=== PATIENT | female | born 1980 | race African-American/Black ===

== ENCOUNTER 2020-03-25 16:44 | Emergency (ER) | payer OTHER, SELFPAY ==
[2020-03-25 16:50] VITALS: BP 145/109; PULSE 73; RESP 18; TEMP 36.8; O2SAT 100
--- NOTE | 2020-03-25 17:08 | ED.ABDPAIN ---
HPI - Abdominal Pain General Chief Complaint: Abdominal Pain Stated Complaint: ABD Pain, Vomiting Time Seen by Provider: 03/25/20 17:06 History of Present Illness HPI narrative: Burning epigastric pain for the past hour. Radiates into the chest. Associated with vomiting and headache. H/o cholecystectomy. Related Data Home Medications Medication Instructions Recorded Confirmed clonazepam 0.5 mg tablet 0.5 mg PO DAILY 11/23/19 fluoxetine 40 mg capsule 60 mg PO DAILY cap 11/23/19 Allergies Allergy/AdvReac Type Severity Reaction Status Date / Time No Known Allergies Allergy Verified 03/25/20 17:01 [facility] Past Medical History Medical History Anxiety Depression Thyroid nodule Surgical History Surgical History History of cholecystectomy Family History Family History Grandparent Cerebrovascular accident Family history of malignant neoplasm Leukemia Mother Brain tumor Breast cancer Social History Social History Smoking status: Former smoker Smoking end date: 09/21/16 Alcohol intake: current Exam Const: General: healthy appearing, no acute distress and alert Orientation/consciousness: patient oriented x3 HENMT: Head: normal to inspection Neck: Neck: normal visual inspection and no lymphadenopathy Chest: Chest palpation & inspection: no tenderness Resp: Effort & Inspection: normal respiratory effort Auscultation: clear to auscultation bilaterally, no rales, no rhonchi and no wheezes Cardio: Jugular venous distension: no JVD Rate: regular rate Rhythm: regular rhythm Heart sounds: no murmurs GI: Inspection: non-distended GI Palp: Yes Soft to palpation and Yes Tenderness to palpation present (GI) (epigastric and LUQ) Skin: General skin exam: normal color Neuro: General: patient oriented x3 and moves all extremities Speech: normal speech Extrem: General: no edema Psych: Appearance: well kempt Affect: normal affect Course Vital Signs Vital signs: Vital Signs Temperature 36.8 C 03/25/20 16:50 Pulse Rate 73 03/25/20 16:50 Respiratory Rate 18 03/25/20 16:50 Blood Pressure 145/109 H 03/25/20 16:50 Pulse Oximetry 100 03/25/20 16:50 Temperature 36.8 C 03/25/20 16:50 Pulse Rate 72 03/25/20 18:54 Respiratory Rate 18 03/25/20 18:54 Blood Pressure 145/99 H 03/25/20 18:54 Pulse Oximetry 100 03/25/20 18:54 MDM - Abdominal Pain MDM Narrative Medical decision making narrative: Presentation is most likely benign especially given h/o prior cholecystectomy. symptoms showed significant improvement with treatment. Lab Data Attestation: I reviewed the patient's lab results. Result diagrams: 03/25/20 17:42 03/25/20 17:42 Labs: Lab Results 03/25/20 03/25/20 03/25/20 Range/Units 17:42 17:42 17:42 WBC 10.1 H (4.5-10.0) K/mm3 RBC 4.55 (4.2-5.4) M/mm3 Hgb 13.1 (12.0-15.0) g/dL Hct 41.3 (37.0-47.0) % MCV 90.8 (80-100) fl MCH 28.8 (26-34) pg MCHC 31.7 L (32-36) g/dl RDW 12.3 (11.5-14.5) % Plt Count 273 (150-375) k/mm3 MPV 10.4 (7.4-10.4) fl Immature Gran % (Auto) 0.4 (0-0.5) % Neut % (Auto) 78.9 H (45.5-73.1) % Lymph % (Auto) 13.2 L (18.3-44.2) % [place] % (Auto) 5.7 (2.6-8.5) % Eos % (Auto) 1.4 (0-4.4) % Baso % (Auto) 0.4 (0.2-1.2) % Lymph # (Auto) 1.33 (0.9-3.2) K/mm3 [place] # (Auto) 0.6 (0.1-0.6) K/mm3 Eos # (Auto) 0.1 (0-0.3) K/mm3 Baso # (Auto) 0.0 (0.0-0.1) K/mm3 Abs Immat Gran (auto) 0.04 H (0.00-0.031) K/mm3 Absolute Neuts (auto) 8.0 H (1.3-6.7) K/mm3 Absolute Nucleated RBC 0.0 (0.0-0.012) K/mm3 Nucleated RBC % 0.0 (0.0-0.2) % Sodium 138 (137-145) mmol/L Potassium 3.7
[2020-03-25] MEDS: ONDANSETRON INJ 4 MG/2 ML VIAL IV PUSH (17:36)
[2020-03-25] MEDS: PANTOPRAZOLE SODIUM IV 40 MG VIAL IV PUSH (17:36)
--- NOTE | 2020-03-25 17:47 | PC.NURSE ---
This RN in room to do pts test, pt states she is fixed and doesn't need one
[2020-03-25 17:50] LABS: Basophils Percent Auto 0.4 % (0.2-1.2); Eosinophils Absolute Auto 0.1 K/mm3 (0-0.3); Eosinophils Percent Auto 1.4 % (0-4.4); Hematocrit 41.3 % (37.0-47.0); Hemoglobin 13.1 g/dL (12.0-15.0); Immature Granulocyte Absolute 0.04 K/mm3 (0.00-0.031); Immature Granulocyte Percent A 0.4 % (0-0.5); Lymphocytes Absolute Auto 1.33 K/mm3 (0.9-3.2); Lymphocytes Percent Auto 13.2 % (18.3-44.2); Mean Corpuscular HGB Conc 31.7 g/dl (32-36); Mean Corpuscular Hemoglobin 28.8 pg (26-34); Mean Corpuscular Volume 90.8 fl (80-100); Mean Platelet Volume 10.4 fl (7.4-10.4); Monocytes Absolute Auto 0.6 K/mm3 (0.1-0.6); Monocytes Percent Auto 5.7 % (2.6-8.5); Neutrophils Percent Auto 78.9 % (45.5-73.1); Platelet Count Result 273 k/mm3 (150-375); Red Blood Count 4.55 M/mm3 (4.2-5.4); Red Cell Distribution Width 12.3 % (11.5-14.5); White Blood Count 10.1 K/mm3 (4.5-10.0)
[2020-03-25 17:52] LABS: Add Urine Microscopic? NO; Appearance Urine Clear (Clear); Bilirubin Urine Negative (Negative); Blood Urine Negative (Negative); Color Urine Straw (Yellow); Glucose Urine UA Negative (Negative); Ketones Urine Negative (Negative); Leukocyte Esterase Ur Negative LEU/UL (Negative); Nitrate Urine Negative (Negative); Protein Urine Negative (Negative); Specific Grav Ur 1.015 (1.001-1.035); Urobilinogen Urine Negative mg/dL (<2.0)
[2020-03-25 18:01] LABS: Alanine Aminotransferase 21 U/L (4-35); Albumin Level 4.9 g/dL (3.5-5.1); Alkaline Phosphatase 107 U/L (38-126); Aspartate Amino Transferase 27 U/L (14-36); Bilirubin,Total 0.6 mg/dL (0.2-1.3); Blood Urea Nitrogen 11 mg/dL (7-17); Calcium 9.7 mg/dL (8.4-10.2); Carbon Dioxide 27 mmol/L (22-30); Chloride 104 mmol/L (98-107); Estimated CRCL calculation 108 ml/min; Estimated Glomerular Filt Rate > 60; Glucose 108 mg/dL (65-105); Lipase 366 U/L (23-300); Potassium 3.7 mmol/L (3.4-5.0); Sodium 138 mmol/L (137-145)
[2020-03-25] MEDS: METOCLOPRAMIDE HCL INJ 10 MG/2 ML VIAL IV PUSH (18:22)
[2020-03-25] MEDS: DICYCLOMINE HCL INJ 20 MG/2 ML VIAL IM (18:22)
[2020-03-25 18:54] VITALS: BP 145/99; PULSE 72; RESP 18; O2SAT 100
== END 2020-03-25 19:16 | disposition home or self-care (01) ==
PROVIDERS: Emergency Medicine; Emergency Provider Emergency Medicine; PCP Internal Medicine
DX: R10.13 Epigastric pain (principal); F41.9 Anxiety disorder, unspecified; F32.9 Major depressive disorder, single episode, unspecified; Z87.891 Personal history of nicotine dependence; E04.1 Nontoxic single thyroid nodule
CPT/HCPCS: 36415; 80053; 81003; 83690; 85025; 96372; 96374; 96375; 99284; C9113; J0500; J2060; J2405; J2765

== ENCOUNTER 2020-09-29 19:05 | Emergency (ER) | payer OTHER, SELFPAY ==
--- NOTE | ~2020-09-29 | XR_ITS ---
EXAMINATION: XR cervical spine 4-5V DATE: 09/29/2020 20:35 INDICATION: Neck pain. Left ear pain. TECHNIQUE: 4 views of the cervical spine were obtained. COMPARISON: None. FINDINGS: There is 4 degrees levocurvature of cervical spine. There is kyphosis of cervical spine. Ve rtebral body heights and intervertebral disc heights are normal. The facet joints are unremarkable. N o central canal stenosis or prevertebral soft tissue swelling. IMPRESSION: 1. Cervical kyphosis and levocurvature. Reviewed, dictated and finalized at location A. ADMIN
[2020-09-29 19:07] VITALS: BP 142/86; PULSE 76; RESP 18; TEMP 35.9; O2SAT 100
--- NOTE | 2020-09-29 19:56 | ECG_ITS ---
Measurements Intervals [place] Rate: 69 P: 34 PA: 144 QRS: 16 QRSD: 76 T: 39 QT: 363 QTc: 391 Interpretive Statements SINUS RHYTHM DELAYED PRECORDIAL R/S TRANSITION BASELINE ARTIFACT- I, II, V3 BORDERLINE ECG Electronically Signed On 09-29-2020 20:32:35 [employer] OPERATOR by Jose Armando Bangura D.O.
--- NOTE | 2020-09-29 20:07 | PC.NURSE ---
Patient in Xray at this time.
--- NOTE | 2020-09-29 20:21 | ED.GENADULT ---
HPI - General Adult General Chief complaint: Unspecified Stated complaint: Head Pain Left Side Time Seen by Provider: 09/29/20 19:43 Source: RN notes reviewed History of Present Illness HPI narrative: Patient presents to emergency department from home for left-sided neck pain. Patient states symptoms began approximately 3 weeks ago. Pain goes from the patient's left lateral head and ear down into the left lateral shoulder and down into the back into the anterior chest. She states is associated with pain with moving of the neck as well as some intermittent tingling in her left arm she states she does have a sore throat with this. Patient denies any fevers chest pain shortness of breath coughing abdominal pain nausea vomiting or any other symptoms. She denies any unilateral weakness. Patient states she has been taking Tylenol ibuprofen at home with minimal relief. Patient also notes that she does currently see a psychiatrist and they have been weaning her medication. When asked about suicidal ideation she states that she does have some thoughts of harming herself most recently talked about hanging herself 3 days ago but states that she had an active safety plan following this. She denies any current thoughts of suicidal ideation today. Morphine she states that she has been weaned off of her Prozac because she was getting extrapyramidal symptoms Related Data Home Medications Medication Instructions Recorded Confirmed fluoxetine 40 mg capsule 60 mg PO DAILY cap 11/23/19 Allergies Allergy/AdvReac Type Severity Reaction Status Date / Time No Known Allergies Allergy Verified 09/29/20 19:21 Review of Systems Review of Systems: Narrative: Gen.: Denies fevers or chills Eyes: Denies eye pain or visual change ENT: Denies congestion Respiratory: Denies shortness of breath or cough CV: Denies chest pain or palpitations GI: Denies abdominal pain nausea, emesis or diarrhea denies burning, urgency, frequency or hematuria Musculoskeletal: See HPI Neuro: Denies numbness, tingling, weakness or focal weakness Skin: Denies rash Except as documented, all other systems reviewed and negative [facility] Past Medical History Medical History (Updated 09/29/20 @ 23:57 by Tab Archer DO) Anxiety Depression Thyroid nodule Surgical History Surgical History History of cholecystectomy Family History Family History Grandparent Cerebrovascular accident Family history of malignant neoplasm Leukemia Mother Brain tumor Breast cancer Social History Social History Smoking status: Former smoker Smoking end date: 09/21/16 Alcohol intake: current Exam Narrative: Exam Narrative: APPEARANCE: No acute distress, nontoxic, resting in bed EYES: EOMI HEENT: Normocephalic, atraumatic, TMs clear bilaterally nares patent oral mucosa moist mild erythema with no exudate posterior pharynx tonsils 2+ uvula midline tolerating own secretions Neck: Supple no midline tenderness palpation tender palpation over the left trapezius muscle diffusely with muscle spasm palpated, pain with rotation of the neck bilaterally greater than 45 degrees RESPIRATORY: No respiratory distress Clear to auscultation bilaterally with no rhonchi wheezing or rales. CARDIOVASCULAR: Regular rate and rhythm without murmurs rubs or gallops. ABDOMINAL: Soft, nontender, nondistended, no rebound or guarding MUSCULOSKELETAl: Moves all extremities. No clubbing, cyanosis or edema. Bilateral radial pulse 2+ NEURO: Awake and alert x 4. Following commands, speech normal, no focal deficits muscle strength 5 out of 5 bilateral upper and lower extremities SKIN:: Warm, dry. No rashes lesions or abrasions PSYCHIATRIC: Normal affect/mood, Course Course Emergency Course: Patient states that neck pain is improved with mor
[2020-09-29] MEDS: KETOROLAC 30 MG/ML VIAL (*BKC) IV PUSH (20:33)
[2020-09-29 20:41] LABS: Basophils Percent Auto 0.6 % (0.2-1.2); Eosinophils Absolute Auto 0.3 K/mm3 (0-0.3); Eosinophils Percent Auto 4.7 % (0-4.4); Hematocrit 41.8 % (37.0-47.0); Hemoglobin 13.1 g/dL (12.0-15.0); Immature Granulocyte Absolute 0.02 K/mm3 (0.00-0.031); Immature Granulocyte Percent A 0.3 % (0-0.5); Lymphocytes Absolute Auto 2.23 K/mm3 (0.9-3.2); Lymphocytes Percent Auto 35.1 % (18.3-44.2); Mean Corpuscular HGB Conc 31.3 g/dl (32-36); Mean Corpuscular Volume 92.5 fl (80-100); Mean Platelet Volume 10.4 fl (7.4-10.4); Monocytes Absolute Auto 0.5 K/mm3 (0.1-0.6); Neutrophils Absolute Auto 3.3 K/mm3 (1.3-6.7); Neutrophils Percent Auto 51.3 % (45.5-73.1); Platelet Count Result 246 k/mm3 (150-375); Red Blood Count 4.52 M/mm3 (4.2-5.4); Red Cell Distribution Width 11.9 % (11.5-14.5); White Blood Count 6.4 K/mm3 (4.5-10.0)
[2020-09-29 20:58] LABS: Ethanol < 10 mg/dL (<10)
[2020-09-29 20:59] LABS: Alanine Aminotransferase 22 U/L (4-35); Albumin Level 4.5 g/dL (3.5-5.1); Alkaline Phosphatase 73 U/L (38-126); Anion Gap 8 mmol/L (8-16); Aspartate Amino Transferase 24 U/L (14-36); Bilirubin,Total 0.5 mg/dL (0.2-1.3); Blood Urea Nitrogen 16 mg/dL (7-17); Calcium 9.1 mg/dL (8.4-10.2); Carbon Dioxide 28 mmol/L (22-30); Chloride 103 mmol/L (98-107); Estimated CRCL calculation 111 ml/min; Estimated Glomerular Filt Rate > 60; Glucose 86 mg/dL (65-105); Sodium 139 mmol/L (137-145)
[2020-09-29 21:00] LABS: Add Urine Microscopic? NO; Appearance Urine Clear (Clear); Bilirubin Urine Negative (Negative); Blood Urine Negative (Negative); Color Urine Straw (Yellow); Glucose Urine UA Negative (Negative); Ketones Urine Negative (Negative); Leukocyte Esterase Ur Negative LEU/UL (Negative); Nitrate Urine Negative (Negative); Protein Urine Negative (Negative); Urobilinogen Urine Negative mg/dL (<2.0)
[2020-09-29 21:12] LABS: Amphetamine Screen Urine Negative (Negative); Barbiturate Screen Urine Negative (Negative); Benzodiazepines Screen Urine Negative (Negative); Cannabinoid Screen Urine Negative (Negative); Cocaine Screen Urine Negative (Negative); Methadone Screen Urine Negative (Negative); Opiate Screen Urine Negative (Negative); Phencyclidine Screen Urine Negative (Negative)
[2020-09-29] MEDS: MORPHINE SULFATE (*CRX) 2 MG/ML INJ IV PUSH ×2 (22:00→23:57)
[2020-09-29 23:43] VITALS: BP 142/76; PULSE 76; RESP 18; O2SAT 98
== END 2020-09-30 00:09 | disposition home or self-care (01) ==
PROVIDERS: Emergency Provider Emergency Medicine; PCP Internal Medicine
DX: M62.838 Other muscle spasm (principal); F41.9 Anxiety disorder, unspecified; F32.9 Major depressive disorder, single episode, unspecified; Z87.891 Personal history of nicotine dependence
CPT/HCPCS: 36415; 72050; 80053; 80307; 81003; 81025; 84443; 85025; 87081; 87880; 93005; 96374; 96375; 96376; 99284; J1885; J2270

== ENCOUNTER 2021-03-11 13:41 | Outpatient (CLI) | payer OTHER, SELFPAY ==
--- NOTE | ~2021-03-11 | MR_ITS ---
EXAMINATION: MR brain/brain stem wo con DATE: 03/11/2021 14:46 INDICATION: Other visual disturbances. Memory loss. TECHNIQUE: Magnetic resonance imaging (MRI) of the brain and brainstem was performed without intraven ous contrast. Sequences included sagittal and axial T1-weighted FSE, axial diffusion-weighted FS EPI, axial T2*-weighted GRE, axial T2-weighted FLAIR Propeller, and axial T2-weighted Propeller. Apparent diffusion coefficient (ADC) maps were created. COMPARISON: None. FINDINGS: There is no intracranial hemorrhage, acute infarction, or abnormal intracranial mass lesion . The ventricles are normal in size. There is mild mucosal thickening in the paranasal sinuses. The o rbits are normal. The mastoid air cells are normal. IMPRESSION: 1. Normal brain. Reviewed, dictated and finalized at location A. IMPRESSION: 1. Normal brain.
== END 2021-03-11 13:42 | disposition home or self-care (01) ==
LOC: ANHIMG 13:42
PROVIDERS: PCP Internal Medicine; Visit Provider Nurse Practitioner
DX: H53.8 Other visual disturbances (principal); R20.2 Paresthesia of skin; R41.3 Other amnesia
CPT/HCPCS: 70551

== ENCOUNTER 2021-03-13 09:42 | Outpatient (CLI) | payer OTHER, SELFPAY ==
--- NOTE | ~2021-03-13 | MM_ITS ---
EXAMINATION: MM screening zeus BI w phyllis HISTORY: Screening mammogram TECHNIQUE: Craniocaudal and mediolateral oblique 3-D tomosynthesis images were obtained and synthetic 2-D images were generated. CAD analysis was submitted and interpreted. COMPARISON: 05/31/2019 bilateral digital screening mammogram BREAST PARENCHYMAL COMPOSITION: There are scattered areas of fibroglandular density. FINDINGS: Focal asymmetries and nodular densities are noted in both breasts. Bilateral diagnostic zeus mography and breast ultrasound examination are recommended. IMPRESSION: 1. No mammographic evidence of malignancy. 2. Recommend routine screening mammography in one year. BI-RADS Category 0: Incomplete: Needs additional imaging evaluation. Reviewed, dictated and finalized at location A.
== END 2021-03-13 09:43 | disposition home or self-care (01) ==
LOC: ANHIMG 09:45
PROVIDERS: PCP Internal Medicine; Visit Provider Obstetrics & Gynecology
DX: Z12.31 Encounter for screening mammogram for malignant neoplasm of breast (principal); R92.8 Other abnormal and inconclusive findings on diagnostic imaging of breast
CPT/HCPCS: 77063; 77067

== ENCOUNTER 2021-04-30 11:53 | Outpatient (CLI) | payer OTHER, SELFPAY ==
--- NOTE | ~2021-04-30 | MMUS_ITS ---
EXAMINATION: MM diagnostic zeus BI w phyllis, US breast BI complete HISTORY: Follow-up breast asymmetries TECHNIQUE: Additional 3-D tomosynthesis images of the breasts were performed and synthetic 2-D images were generated. CAD analysis was submitted and interpreted. High resolution complete bilateral breas t ultrasound was performed. COMPARISON: Comparison to multiple prior studies sequentially, with oldest reviewed study dated 05/31/2019. BREAST PARENCHYMAL COMPOSITION: Breast composed of scattered areas of fibroglandular density. FINDINGS: MAMMOGRAPHIC FINDINGS: There are no suspicious masses, calcifications or architectural distortion in either breast to sugges t malignancy. ULTRASOUND: Complete bilateral breast ultrasound: There are small cysts in the right breast, largest measuring 4 mm. No sonographic evidence for malignancy in either breast. IMPRESSION: 1. No evidence for malignancy in either breast. 2. Routine yearly screening mammogram and regular clinical breast examination are recommended. BI-RADS Category 2: Benign finding(s). Reviewed, dictated and finalized at location A. IMPRESSION: 1. No evidence for malignancy in either breast. 2. Routine yearly screening mammogram and regular clinical breast examination a re recommended. BI-RADS Category 2: Benign finding(s).
== END 2021-04-30 11:54 | disposition home or self-care (01) ==
LOC: ANHIMG 11:56
PROVIDERS: PCP Internal Medicine; Visit Provider Obstetrics & Gynecology
DX: R92.8 Other abnormal and inconclusive findings on diagnostic imaging of breast (principal)
CPT/HCPCS: 76641; 77062; 77066; G0279

== ENCOUNTER 2021-07-25 21:02 | Emergency (ER) | payer OTHER, SELFPAY ==
--- NOTE | ~2021-07-25 | CT_ITS ---
EXAMINATION: CT abdomen pelvis w con DATE: 07/25/2021 23:18 INDICATION: Bilateral flank pain TECHNIQUE: Computed tomography (CT) of the abdomen and pelvis was performed without intravenous contr ast. Automated exposure control and iterative reconstruction technique were employed. Exam dose: 900 .93 mGy-cm total exam DLP. COMPARISON: None. FINDINGS: The lung bases are clear of infiltrate or consolidation. Normal heart size. No pericardial or pleural effusion. There is postoperative change from cholecystectomy. Mild intrahepatic bile duct dilatation is likely secondary to that surgery. Common bile duct is of normal caliber. There are scattered up to 7 mm hepatic cysts. Normal splenic size. No pancreatic mass lesion, calcifi cation or ductal dilatation. Normal morphology of the adrenal glands. No renal mass lesion or urinary tract calculus or hydroureteronephrosis. Renal outlines are smooth. T here is no evidence of chronic pyelonephritis or suggestion of acute pyelonephritis-there is homogene ous enhancement of the kidneys and no perinephric fat stranding or thickening of the pararenal fascia . Normal caliber of the abdominal aorta. No intraperitoneal or retroperitoneal or pelvic mass lesion or adenopathy or ascites. Peripherally enhancing 1.3 cm involuting right ovarian cyst. Involuting peripherally enhancing 1.5 cm left ovarian cyst. Mild uterine enlargement. The urinary bladder is largely evacuated. Normal caliber of the abdominal aorta. No intraperitoneal or retroperitoneal or pelvic mass lesion or adenopathy or ascites. Normal appendix. No bowel obstruction, bowel wall thickening, pneumatosis or intraperitoneal free air . Small fat-containing umbilical hernia. Included skeletal structures are unremarkable. IMPRESSION: No CT evidence of pyelonephritis, acute or chronic Status post cholecystectomy Scattered 7 mm or smaller hepatic cysts Bilateral involuting 1.4 cm or smaller ovarian cysts Reviewed, dictated and finalized at Location A. Reviewed, dictated and finalized at location A.
[2021-07-25 21:06] VITALS: BP 166/93; PULSE 105; RESP 14; TEMP 36.6; O2SAT 100
[2021-07-25 21:11] VITALS: BP 140/84; PULSE 104; RESP 20; TEMP 36.8; O2SAT 100
[2021-07-25] MEDS: KETOROLAC 15 MG/ML VIAL (*BKC) IV PUSH (21:33)
[2021-07-25] MEDS: SODIUM CHLORIDE 0.9% IV 1,000 ML 999 ML IV CONT (21:34)
[2021-07-25 21:45] LABS: Basophils Percent Auto 0.5 % (0.2-1.2); Eosinophils Absolute Auto 0.2 K/mm3 (0-0.3); Eosinophils Percent Auto 3.2 % (0-4.4); Hematocrit 40.7 % (37.0-47.0); Hemoglobin 13.2 g/dL (12.0-15.0); Immature Granulocyte Absolute 0.01 K/mm3 (0.00-0.031); Immature Granulocyte Percent A 0.2 % (0-0.5); Lymphocytes Absolute Auto 1.74 K/mm3 (0.9-3.2); Lymphocytes Percent Auto 30.7 % (18.3-44.2); Mean Corpuscular HGB Conc 32.4 g/dl (32-36); Mean Corpuscular Hemoglobin 29.5 pg (26-34); Mean Corpuscular Volume 90.8 fl (80-100); Mean Platelet Volume 10.4 fl (7.4-10.4); Monocytes Absolute Auto 0.4 K/mm3 (0.1-0.6); Monocytes Percent Auto 6.5 % (2.6-8.5); Neutrophils Absolute Auto 3.3 K/mm3 (1.3-6.7); Neutrophils Percent Auto 58.9 % (45.5-73.1); Platelet Count Result 228 k/mm3 (150-375); Red Blood Count 4.48 M/mm3 (4.2-5.4); Red Cell Distribution Width 11.8 % (11.5-14.5); White Blood Count 5.7 K/mm3 (4.5-10.0)
[2021-07-25 22:00] LABS: Alanine Aminotransferase 16 U/L (4-35); Albumin Level 4.9 g/dL (3.5-5.1); Alkaline Phosphatase 73 U/L (38-126); Anion Gap 10 mmol/L (8-16); Aspartate Amino Transferase 21 U/L (14-36); Bilirubin,Total 0.6 mg/dL (0.2-1.3); Blood Urea Nitrogen 12 mg/dL (7-17); Calcium 9.9 mg/dL (8.4-10.2); Carbon Dioxide 26 mmol/L (22-30); Chloride 106 mmol/L (98-107); Estimated CRCL calculation 81 ml/min; Estimated Glomerular Filt Rate > 60; Glucose 102 mg/dL (65-110); Potassium 3.7 mmol/L (3.4-5.0); Sodium 142 mmol/L (137-145)
[2021-07-25 22:01] LABS: Lactic Acid Reflex 1.1 mmol/L (0.7-2.1)
--- NOTE | 2021-07-25 22:15 | ED.ABDPAIN ---
HPI - Abdominal Pain General Chief Complaint: Urogenital-Female Stated Complaint: uti symptoms Time Seen by Provider: 07/25/21 21:09 Source: patient History of Present Illness HPI narrative: Patient presents with concern for UTI. She reports she has had pain with urination and increased urinary frequency for the past 2 weeks. Saw her primary care doctor yesterday was diagnosed with UTI was started on Macrobid. Reports her symptoms persisted today talk to her primary care doctor is referred to the ER for evaluation. She does not feel her symptoms are worse they are just not improving. Reports her pain is primarily in her lower abdomen but she is now experiencing back pain as well. She denies any fevers, cough, congestion, nausea, vomiting. Related Data Allergies Allergy/AdvReac Type Severity Reaction Status Date / Time No Known Allergies Allergy Verified 01/03/21 14:55 Review of Systems Review of Systems: CONSTITUTIONAL: Denies fever, chills, or sweats. EYES: Denies visual changes, redness, or discharge. ENT: Denies rhinorrhea, congestion, sore throat, or otalgia. CARDIOVASCULAR: Denies chest pain, palpitations, or edema. RESPIRATORY: Denies cough or dyspnea. GASTROINTESTINAL: Denies abdominal pain, nausea, vomiting, or diarrhea. GENITOURINARY: Patient reports pain with urination, increased urinary frequency SKIN: Denies rash or itching. MUSCULOSKELETAL: Denies back pain, joint pain, or myalgia. NEUROLOGIC: Denies headache, numbness, dizziness, or weakness. PSYCHIATRIC: Denies anxiety or depression. All systems reviewed & are unremarkable except as noted in HPI and below PMFSH Past Medical History Medical History (Updated 07/26/21 @ 00:12 by Du Kincaid MD) Anxiety Depression Thyroid nodule Surgical History Surgical History History of cholecystectomy Family History Family History Grandparent Cerebrovascular accident Family history of malignant neoplasm Leukemia Mother Brain tumor Breast cancer Social History Social History Smoking status: Former smoker Smoking end date: 09/21/16 Alcohol intake: current Alcohol use details: socially Exam Narrative: GENERAL: Well-appearing, well-nourished, and in no acute distress. HEAD: Normocephalic, atraumatic. EYES: PERRLA and EOMI. ENT: Nares clear, no rhinorrhea or epistaxis. Mucous membranes moist. ABDOMEN: Mild tenderness in the suprapubic area soft, nondistended, normal active bowel sounds. BACK: Diffuse back pain with CVA tenderness bilaterally EXTREMITIES: Normal range of motion. No edema. SKIN: Warm, dry, no rash. NEURO: No focal deficits. Alert and oriented x3. PSYCH: Normal mood and affect. Course Reevaluation(s) Reevaluation #1: Patient reports feeling much improved. Results and plan reviewed with patient. Patient comfortable with outpatient plan. Date: 07/26/21 Time: 00:08 Vital Signs Vital signs: Vital Signs Temperature 36.6 C 07/25/21 21:06 Pulse Rate 105 H 07/25/21 21:06 Respiratory Rate 14 07/25/21 21:06 Blood Pressure 166/93 H 07/25/21 21:06 Pulse Oximetry 100 07/25/21 21:06 Temperature 36.8 C 07/25/21 21:11 Pulse Rate 74 07/25/21 23:49 Respiratory Rate 18 07/25/21 23:49 Blood Pressure 121/56 L 07/25/21 23:49 Pulse Oximetry 99 07/25/21 23:49 MDM - Abdominal Pain MDM Narrative Medical decision making narrative: H&P as above, vss, pt looks clinically well, exam with bilateral CVA tenderness, labs labs clinically unremarkable interpretation of UA likely limited as patient is on oral antibiotics, img without acute process, additional labs/img considered, symptomatic relief available as needed, on reevaluation pt continues to looks clinically well. Suspect urinary tract infection possibly early Lance however imaging was negative,
[2021-07-25] MEDS: MORPHINE SULFATE (*CRX) 4 MG/ML INJ IV PUSH (22:46)
[2021-07-25] MEDS: ONDANSETRON INJ 4 MG/2 ML VIAL IV PUSH (23:28)
[2021-07-25 23:44] LABS: Add Urine Microscopic? YES; Appearance Urine Cloudy (Clear); Bacteria Urine Trace /hpf; Bilirubin Urine Negative (Negative); Blood Urine Negative (Negative); Budding Yeast Urine Present /hpf; Color Urine Yellow (Yellow); Glucose Urine UA Negative (Negative); Ketones Urine Negative (Negative); Leukocyte Esterase Ur Negative LEU/UL (Negative); Mucus Urine Rare /lpf; Nitrate Urine Negative (Negative); Protein Urine Negative (Negative); RBC Urine 0-2 /hpf (0-2); Specific Grav Ur 1.025 (1.001-1.035); Squamous Epithelial Cell Urine Many /hpf (Few)
[2021-07-25 23:49] VITALS: BP 121/56; PULSE 74; RESP 18; O2SAT 99
== END 2021-07-26 00:32 | disposition home or self-care (01) ==
PROVIDERS: Emergency Provider Emergency Medicine; PCP Internal Medicine
DX: N39.0 Urinary tract infection, site not specified (principal); Z87.891 Personal history of nicotine dependence; N83.202 Unspecified ovarian cyst, left side; N83.201 Unspecified ovarian cyst, right side; K76.89 Other specified diseases of liver
CPT/HCPCS: 36415; 74177; 80053; 81001; 81025; 83605; 85025; 96365; 96367; 96375; 99284; J0131; J0696; J1885; J2270; J2405; J7030; Q9967

== ENCOUNTER 2022-05-15 09:29 | Outpatient (CLI) | payer OTHER, SELFPAY ==
[2022-05-15 18:38] LABS: Basophils Percent Auto 1.1 % (0.2-1.2); Eosinophils Absolute Auto 0.1 K/mm3 (0-0.3); Eosinophils Percent Auto 3.6 % (0-4.4); Hematocrit 38.4 % (37.0-47.0); Hemoglobin 12.2 g/dL (12.0-15.0); Lymphocytes Absolute Auto 1.22 K/mm3 (0.9-3.2); Lymphocytes Percent Auto 33.8 % (18.3-44.2); Mean Corpuscular HGB Conc 31.8 g/dl (32-36); Mean Corpuscular Hemoglobin 28.6 pg (26-34); Mean Corpuscular Volume 89.9 fl (80-100); Mean Platelet Volume 11.2 fl (7.4-10.4); Monocytes Absolute Auto 0.3 K/mm3 (0.1-0.6); Neutrophils Absolute Auto 1.9 K/mm3 (1.3-6.7); Neutrophils Percent Auto 53.5 % (45.5-73.1); Platelet Count Result 220 k/mm3 (150-375); Red Blood Count 4.27 M/mm3 (4.2-5.4); Red Cell Distribution Width 11.9 % (11.5-14.5); White Blood Count 3.6 K/mm3 (4.5-10.0)
[2022-05-15 18:46] LABS: Alanine Aminotransferase 15 U/L (6-35); Albumin Level 4.7 g/dL (3.5-5.1); Alkaline Phosphatase 71 U/L (38-126); Anion Gap 10 mmol/L (8-16); Aspartate Amino Transferase 22 U/L (14-36); Bilirubin,Total 0.7 mg/dL (0.2-1.3); Blood Urea Nitrogen 16 mg/dL (7-17); Calcium 9.3 mg/dL (8.4-10.2); Carbon Dioxide 23 mmol/L (22-30); Chloride 104 mmol/L (98-107); Cholesterol 132 mg/dL (0-200); Estimated Glomerular Filt Rate > 60; Glucose 105 mg/dL (65-110); HDL Direct 45 mg/dL; Potassium 3.7 mmol/L (3.4-5.0); Sodium 137 mmol/L (137-145); Triglycerides 64 mg/dL (<150)
[2022-05-15 18:59] LABS: LDL Cholesterol Direct 59 mg/dL
[2022-05-15 19:01] LABS: Erythrocyte Sedimentation Rate 10 mm/hr (0-20)
[2022-05-15 19:16] LABS: Thyroid Stimulating Hormone 0.681 uIU/mL (0.465-4.680)
[2022-05-15 19:51] LABS: Folic Acid 14.7 ng/mL (2.76->20)
== END 2022-05-15 09:30 | disposition home or self-care (01) ==
LOC: ANHGOSHLAB 09:31
PROVIDERS: PCP Internal Medicine; Visit Provider Nurse Practitioner
DX: Z13.220 Encounter for screening for lipoid disorders (principal); R53.83 Other fatigue; R51.9 Headache, unspecified; Z13.29 Encounter for screening for other suspected endocrine disorder
CPT/HCPCS: 36415; 80053; 80061; 82607; 82746; 84443; 85025; 85652

== ENCOUNTER 2022-06-23 11:58 | Outpatient (CLI) | payer OTHER, SELFPAY ==
[2022-06-23 20:07] LABS: Rheumatoid Factor < 8.6 IU/ML (<12)
[2022-06-23 20:40] LABS: Hepatitis C Virus Antibody Negative (Negative)
[2022-06-23 20:48] LABS: HIV 1/2 Ab P24 Ag Result Negative (Negative)
[2022-06-23 21:26] LABS: Basophils Absolute Auto 0.1 K/mm3 (0.0-0.1); Eosinophils Absolute Auto 0.1 K/mm3 (0-0.3); Eosinophils Percent Auto 2.8 % (0-4.4); Hematocrit 41.9 % (37.0-47.0); Hemoglobin 13.1 g/dL (12.0-15.0); Immature Granulocyte Absolute 0.01 K/mm3 (0.00-0.031); Immature Granulocyte Percent A 0.2 % (0-0.5); Lymphocytes Absolute Auto 1.64 K/mm3 (0.9-3.2); Lymphocytes Percent Auto 32.3 % (18.3-44.2); Mean Corpuscular HGB Conc 31.3 g/dl (32-36); Mean Corpuscular Hemoglobin 28.2 pg (26-34); Mean Corpuscular Volume 90.3 fl (80-100); Mean Platelet Volume 12.5 fl (7.4-10.4); Monocytes Absolute Auto 0.3 K/mm3 (0.1-0.6); Monocytes Percent Auto 5.1 % (2.6-8.5); Neutrophils Percent Auto 58.6 % (45.5-73.1); Platelet Count Result 204 k/mm3 (150-375); Red Blood Count 4.64 M/mm3 (4.2-5.4); Red Cell Distribution Width 11.8 % (11.5-14.5); White Blood Count 5.1 K/mm3 (4.5-10.0)
[2022-06-27 16:40] LABS: ANA Cascade Screen Negative (Negative)
== END 2022-06-23 11:59 | disposition home or self-care (01) ==
LOC: ANHGOSHLAB 11:59
PROVIDERS: PCP Internal Medicine; Visit Provider Nurse Practitioner
DX: R53.83 Other fatigue (principal); D72.819 Decreased white blood cell count, unspecified
CPT/HCPCS: 36415; 85025; 86038; 86430; 86703; 86803; G0432

== ENCOUNTER 2022-08-15 14:23 | Outpatient (CLI) | payer OTHER, SELFPAY ==
--- NOTE | ~2022-08-15 | MM_ITS ---
EXAMINATION: MM screening zeus BI w phyllis HISTORY: Screening mammogram TECHNIQUE: Craniocaudal and mediolateral oblique 3-D tomosynthesis images were obtained and synthetic 2-D images were generated. CAD analysis was submitted and interpreted. COMPARISON: 04/30/2021, 03/13/2021, 05/31/2019 BREAST PARENCHYMAL COMPOSITION: There are scattered areas of fibroglandular density. FINDINGS: RIGHT BREAST: No suspicious mass, calcification, or architectural distortion are identified to sugges t malignancy. There has been no suspicious interval change. LEFT BREAST: There are asymmetries in the posterior third of the left breast on the craniocaudal view 7 cm from the nipple in line with the nipple axis and 9 cm from the nipple in the slightly inner danie ast. IMPRESSION: 1. Left breast asymmetries. 2. Additional mammographic views and possible breast ultrasound are recommended. BI-RADS Category 0: Incomplete: Needs additional imaging evaluation. Reviewed, dictated and finalized at location A. EM CONTROLLER IMPRESSION: 1. Left breast asymmetries. 2. Additional mammographic views and possible breast ultrasound are recommended . BI-RADS Category 0: Incomplete: Needs additional imaging evaluation.
== END 2022-08-15 14:24 | disposition home or self-care (01) ==
PROVIDERS: PCP Internal Medicine; Visit Provider Nurse Practitioner Obstetrics & Gynecology
DX: Z12.31 Encounter for screening mammogram for malignant neoplasm of breast (principal); R92.8 Other abnormal and inconclusive findings on diagnostic imaging of breast
CPT/HCPCS: 77063; 77067

== ENCOUNTER 2022-09-12 12:14 | Outpatient (CLI) | payer OTHER, SELFPAY ==
--- NOTE | ~2022-09-12 | MMUS_ITS ---
CORRECTED REPORT Examination changed to MM diagnostic zeus LT w phyllis This report was recreated on 09/17/2022 by freya. Original report was ENGINEER 09/17/2022 EXAMINATION: MM diagnostic zeus LT w phyllis, US breast LT complete HISTORY: Follow-up left breast asymmetries. TECHNIQUE: Additional 3-D tomosynthesis images of the left breast were performed and synthetic 2-D images were generated. CAD analysis was submitted and interpreted. High resolution complete left breast ultrasound was performed. COMPARISON: Comparison to multiple prior studies sequentially, with oldest reviewed study dated 05/31/2019. BREAST PARENCHYMAL COMPOSITION: Breast composed of scattered areas of fibroglandular density FINDINGS: MAMMOGRAPHIC FINDINGS: There are persistent asymmetries in the upper aspect quadrant of the left breast. There is a focal asymmetry in the upper inner quadrant. No suspicious calcifications or architectural distortion. ULTRASOUND: Complete left breast US of all 4 quadrants and retroareolar region was reviewed. At 2:00, 6 cm from the nipple there is a 5 mm cyst. At 3:00, 6 cm from the nipple there is a 3 mm cyst. At 5:00, 5 cm from the nipple there is an oval hypoechoic mass measuring 4 x 3 x 2 mm with parallel orientation with circumscribed margins and no significant posterior features or internal vascularity. IMPRESSION: 1. Solid-appearing left breast mass at 5:00, 5 cm from the nipple measuring 4 mm. Ultrasound-guided breast biopsy recommended. 2. Remainder of the left breast asymmetries are likely benign. Six-month follow- up diagnostic left mammogram recommended. BI-RADS category 4, suspicious findings. Reviewed, dictated and finalized at location A. ENGINEER MTDD IMPRESSION: 1. Solid-appearing left breast mass at 5:00, 5 cm from the nipple measuring 4 m m. Ultrasound-guided breast biopsy recommended. 2. Remainder of the left breast asymmetries are likely benign. Six-month follow -up diagnostic left mammogram recommended. BI-RADS category 4, suspicious findings.
== END 2022-09-12 12:15 | disposition home or self-care (01) ==
LOC: ANHIMG 12:15
PROVIDERS: PCP Internal Medicine; Visit Provider Nurse Practitioner Obstetrics & Gynecology
DX: R92.8 Other abnormal and inconclusive findings on diagnostic imaging of breast (principal)
CPT/HCPCS: 76641; 77061; 77065; G0279

== ENCOUNTER 2023-06-02 23:15 | Emergency (ER) | payer OTHER, SELFPAY ==
--- NOTE | ~2023-06-02 | US_ITS ---
Pelvic ultrasound. Clinical History: Pelvic pain Technique: Realtime transabdominal and transvaginal scanning of the pelvis was performed. Color flow Doppler and Doppler spectral analysis were performed. Findings: The uterus is anteverted. The endometrial stripe has a thickness of 13 mm. No focal mass i s identified. The right ovary measures 5.3 x 3.1 x 2.6 cm. 2 right ovarian cysts are present, larger measuring 3 cm in diameter, smaller measuring 2.6 cm in diameter. The left ovary measures 3.6 x 3.0 x 2.8 cm. Left ovarian cyst measures 2.9 cm in diameter. Vascular flow present in both ovaries on Doppler spectral analysis. There is no evidence of free fluid in the cul de sac. Impression: No evidence for ovarian torsion. Bilateral ovarian cysts, as detailed above. Reviewed, dictated and finalized at location . Impression: No evidence for ovarian torsion. Bilateral ovarian cysts, as detailed above.
--- NOTE | ~2023-06-02 | CT_ITS ---
CT of the Abdomen and Pelvis: Indication: Abdominal pain Technique: 2.5 mm axial scans were obtained through the abdomen and pelvis following intravenous adm inistration of 100 cc of Omnipaque 350. Dose reduction technique was used on this scan by utilizing a utomated exposure control and iterative reconstruction technique. The dose-length product (DLP) was 5 01.38 mGy-cm. COMPARISON: 07/25/2021 Findings: Scans through the lung bases are unremarkable. Liver is mildly heterogeneous diffusely, with several scattered subcentimeter probable cysts. Cholecy stectomy clips are present. The spleen, pancreas, adrenals and kidneys are within normal limits. No evidence of aortic aneurysm. No lymphadenopathy. No bowel obstruction or bowel wall thickening. There is no evidence to suggest acute appendicitis. Images through the pelvis were performed. Urinary bladder unremarkable. Probable 3.5 cm right adnexal cyst, and 3.2 cm left adnexal cyst. No ascites. Impression: Mildly heterogeneous hepatic parenchyma, nonspecific. Correlate with LFTs, and with any relevant clin ical history of liver disease. Bilateral adnexal cysts, as detailed above. Reviewed, dictated and finalized at location M. Impression: Mildly heterogeneous hepatic parenchyma, nonspecific. Correlate with LFTs, and with any relevant clinical history of liver disease. Bilateral adnexal cysts, as detailed above.
[2023-06-02 23:19] VITALS: BP 130/61; PULSE 73; RESP 18; TEMP 36.8; O2SAT 100
[2023-06-03] VITALS (16 sets, daily range): BP systolic 102–140; BP diastolic 54–102; PULSE 64; RESP 15; O2SAT 81–100
[2023-06-03 04:02] LABS: Basophils Percent Auto 0.5 % (0.2-1.2); Eosinophils Absolute Auto 0.4 K/mm3 (0-0.3); Eosinophils Percent Auto 6.8 % (0-4.4); Hematocrit 38.7 % (37.0-47.0); Immature Granulocyte Absolute 0.01 K/mm3 (0.00-0.031); Immature Granulocyte Percent A 0.2 % (0-0.5); Lymphocytes Percent Auto 38.1 % (18.3-44.2); Mean Corpuscular Volume 93.5 fl (80-100); Mean Platelet Volume 10.8 fl (7.4-10.4); Monocytes Absolute Auto 0.4 K/mm3 (0.1-0.6); Monocytes Percent Auto 7.1 % (2.6-8.5); Neutrophils Absolute Auto 2.7 K/mm3 (1.3-6.7); Neutrophils Percent Auto 47.3 % (45.5-73.1); Platelet Count Result 201 k/mm3 (150-375); Red Blood Count 4.14 M/mm3 (4.2-5.4); Red Cell Distribution Width 11.7 % (11.5-14.5); White Blood Count 5.8 K/mm3 (4.5-10.0)
[2023-06-03 04:04] LABS: Appearance Urine Clear (Clear); Bilirubin Urine Negative (Negative); Blood Urine Negative (Negative); Color Urine Yellow (Yellow); Glucose Urine UA Negative (Negative); Ketones Urine Trace mg/dL (Negative); Leukocyte Esterase Ur Negative LEU/UL (Negative); Nitrate Urine Negative (Negative); Protein Urine Negative (Negative); Specific Grav Ur 1.027 (1.001-1.035); pH Urine 6.5 (5.0-9.0)
[2023-06-03 04:09] LABS: Add Urine Microscopic? NO
[2023-06-03 04:12] LABS: Alanine Aminotransferase 19 U/L (6-35); Albumin Level 4.1 g/dL (3.5-5.1); Alkaline Phosphatase 78 U/L (38-126); Anion Gap 6 mmol/L (8-16); Aspartate Amino Transferase 24 U/L (14-36); Bilirubin,Total 0.6 mg/dL (0.2-1.3); Blood Urea Nitrogen 15 mg/dL (7-17); Calcium 8.5 mg/dL (8.4-10.2); Carbon Dioxide 24 mmol/L (22-30); Chloride 106 mmol/L (98-107); Estimated CRCL calculation 121 ml/min; Estimated Glomerular Filt Rate > 60; Glucose 91 mg/dL (65-110); Lipase 144 U/L (23-300); Potassium 3.9 mmol/L (3.4-5.0); Sodium 136 mmol/L (137-145)
[2023-06-03] MEDS: ONDANSETRON INJ 4 MG/2 ML VIAL IV PUSH (04:49)
[2023-06-03] MEDS: SODIUM CHLORIDE 0.9% IV 1,000 ML 999 ML IV CONT (04:49)
[2023-06-03] MEDS: MORPHINE SULFATE (*CRX) 4 MG/ML INJ IV PUSH ×2 (04:49→06:50)
[2023-06-03] MEDS: PANTOPRAZOLE SODIUM IV 40 MG VIAL IV PUSH (05:24)
--- NOTE | 2023-06-03 05:46 | ED.GENADULT ---
HPI - General Adult General Chief complaint: Abdominal Pain <David Iglesias MD - Last Filed: 06/03/23 06:32> Stated complaint: abd pain <David Iglesias MD - Last Filed: 06/03/23 06:32> Time Seen by Provider: 06/03/23 03:56 <David Iglesias MD - Last Filed: 06/03/23 06:32> History of Present Illness HPI narrative: Patient a 42-year-old female who presents emergency department with chief complaint of abdominal pain. The patient reports that she started having pain in the right lower quadrant reports that the pain is worse with movement and improved with rest. Patient reports she had multiple abdominal surgeries in the past primarily as exploratory laparotomy patient denies fever. <David Iglesias MD - Last Filed: 06/03/23 06:32> Related Data Home medications: Home Medications Medication Instructions Recorded Confirmed alprazolam 0.5 mg tablet 0.5 mg PO QHS 05/15/22 <David Iglesias MD - Last Filed: 06/03/23 06:32> Allergies/adverse reactions: Allergies Allergy/AdvReac Type Severity Reaction Status Date / Time No Known Allergies Allergy Verified 06/04/22 14:38 <David Iglesias MD - Last Filed: 06/03/23 06:32> Review of Systems Review of Systems: A 10 system review of systems was completed on the patient and is negative except for what is stated in the HPI. Nursing and ancillary documentation was reviewed. <David Iglesias MD - Last Filed: 06/03/23 06:32> [facility] Past Medical History Medical History: Medical History Anxiety Depression Thyroid nodule <David Iglesias MD - Last Filed: 06/03/23 06:32> Surgical History Surgical History: Surgical History History of cholecystectomy <David Iglesias MD - Last Filed: 06/03/23 06:32> Family History Family History: Family History Grandparent Cerebrovascular accident Family history of malignant neoplasm Leukemia Mother Brain tumor Breast cancer <David Iglesias MD - Last Filed: 06/03/23 06:32> Social History Social History: Social History Social History: caffeine-coffee Smoking status: Light tobacco smoker Tobacco type: e-cigarettes/vaping Alcohol intake: current Alcohol use details: socially <David Iglesias MD - Last Filed: 06/03/23 06:32> Exam Narrative: GENERAL: Well-appearing, well-nourished, and in no acute distress. HEAD: Normocephalic, atraumatic. EYES: PERRLA and EOMI. ENT: Nares clear, no rhinorrhea or epistaxis. Mucous membranes moist. NECK: Supple. CHEST: Clear to auscultation. No respiratory distress. HEART: Regular rate and rhythm. No murmur heard. Normal peripheral pulses. ABDOMEN: Soft, tender to palpation in the right lower quadrant, nondistended, normal active bowel sounds. EXTREMITIES: Normal range of motion. No edema. SKIN: Warm, dry, no rash. NEURO: No focal deficits. Alert and oriented x3. PSYCH: Normal mood and affect. <David Iglesias MD - Last Filed: 06/03/23 06:32> Course Reevaluation(s) Reevaluation #1: Patient care was signed out to me by Dr. Iglesias with ultrasound pending. Ultrasound was ordered to rule out ovarian torsion. Ultrasound was negative for torsion. Patient was updated on the results of the imaging. Patient was offered medication for pain control for home patient was encouraged of close follow-up with PAPIER MACHE MOLDER and her primary care physician. All questions concerns were addressed. Patient will be provided medications for pain control and medications for nausea control for home. Patient was comfortable with the plan for discharge and close follow-up. Me[facility]
[2023-06-03] MEDS: PROCHLORPERAZINE EDISYLATE 10 MG/2 ML VIAL IV PUSH (06:49)
--- NOTE | 2023-06-03 07:08 | PC.NURSE ---
Patient care report given to SCOTT Reddy. All questions answered at this time.
--- NOTE | 2023-06-03 07:30 | PC.NURSE ---
Pt to U/S via w/c at this time.
[2023-06-03] MEDS: ACETAMINOPHEN 500 MG TABLET 1000 MG PO (08:10)
== END 2023-06-03 08:45 | disposition home or self-care (01) ==
PROVIDERS: Emergency Provider Emergency Medicine; PCP Internal Medicine
DX: N83.202 Unspecified ovarian cyst, left side (principal); N83.201 Unspecified ovarian cyst, right side; F17.290 Nicotine dependence, other tobacco product, uncomplicated; F41.9 Anxiety disorder, unspecified; F32.A Depression, unspecified; Z90.49 Acquired absence of other specified parts of digestive tract; R93.2 Abnormal findings on diagnostic imaging of liver and biliary tract
CPT/HCPCS: 36415; 74177; 76856; 80053; 81003; 81025; 83690; 85025; 96361; 96374; 96375; 96376; 99284; A9270; C9113; J0780; J2270; J2405; J7030; Q9967

== ENCOUNTER 2023-11-05 18:20 | Emergency (ER) | payer OTHER, SELFPAY ==
[2023-11-05] VITALS (9 sets, daily range): BP systolic 117–130; BP diastolic 61–73; PULSE 89–106; RESP 14–98; TEMP 36.8–37.6; O2SAT 97–100
--- NOTE | ~2023-11-05 | XR_ITS ---
EXAMINATION: XR chest 2V DATE: 11/05/2023 18:46 INDICATION: Chest and abdominal pain TECHNIQUE: PA and lateral views of the chest were obtained. COMPARISON: Chest radiograph and CT dated 06/24/2015 FINDINGS: The lungs are clear with no focal airspace opacities, pulmonary edema, pleural effusion or pneumothor ax. The cardiomediastinal silhouette is normal. Cholecystectomy clips in right upper quadrant. Mild t o moderate thoracic spondylosis. IMPRESSION: 1. No acute cardiopulmonary disease. Reviewed, dictated and finalized at location A. PHERAL EQUIPMENT OPERATOR
--- NOTE | ~2023-11-05 | CT_ITS ---
EXAMINATION: CTA chest PE abdomen pel DATE: 11/05/2023 22:08 INDICATION: Dyspnea, tachycardia and pleuritic chest pain. TECHNIQUE: Computed tomography (CT) pulmonary angiogram of the chest was performed with 100 mL Omnipa que-350 intravenous contrast. Additional 3D reconstructions utilizing coronal maximum intensity proje ction (MIP) were performed. CT of the abdomen and pelvis was performed with intravenous contrast util izing the same contrast bolus following a short delay. Automated exposure control and iterative recon struction technique were employed. The dose-length product was 910.52 mGy-cm. COMPARISON: CT abdomen pelvis dated 06/03/2023 FINDINGS: Chest: No pulmonary embolism. No pneumonia, pulmonary edema or pleural effusion. Heart size is normal. No pe ricardial effusion. Thoracic aorta is normal in caliber with no dissection. Persistent thymic hyperpl jess in the anterior mediastinum No pathologically enlarged thoracic lymphadenopathy. Mild thoracic s pondylosis. Abdomen/pelvis: Cholecystectomy clips the gallbladder fossa. Multiple small low-attenuation hepatic cysts the largest measuring 9 mm in the right hepatic lobe. Spleen, pancreas, bilateral adrenal glands and kidneys are normal. Bowels including the appendix are normal. Bladder, anteverted uterus and left adnexa are nor mal. 3.3 cm right adnexal cyst. No free intraperitoneal gas or fluid. No pathologically enlarged abdo shasta or pelvic lymphadenopathy. Mild lumbar spondylosis. IMPRESSION: 1. No pulmonary embolism or other acute cardiopulmonary disease. 2. No acute intra-abdominal/pelvic process. Reviewed, dictated and finalized at location A. E RECYCLER
--- NOTE | 2023-11-05 18:23 | ECG_ITS ---
Measurements Intervals [place] Rate: 112 P: 52 ND: 129 QRS: 8 QRSD: 74 T: 61 QT: 293 QTc: 401 Interpretive Statements SINUS TACHYCARDIA NONSPECIFIC ST ABNORMALITY ABNORMAL ECG COMPARED TO ECG 09/29/2020 20:20:30 [address] NOW PRESENT ST (T WAVE) DEVIATION NOW PRESENT Electronically Signed On 11-06-2023 15:04:33 SALES ADVISORY MANAGER by Chris Coker M.D.
[2023-11-05 19:06] LABS: Basophils Percent Auto 0.1 % (0.2-1.2); Eosinophils Percent Auto 0.4 % (0-4.4); Hematocrit 43.1 % (37.0-47.0); Hemoglobin 13.8 g/dL (12.0-15.0); Immature Granulocyte Absolute 0.03 K/mm3 (0.00-0.031); Immature Granulocyte Percent A 0.3 % (0-0.5); Lymphocytes Absolute Auto 0.57 K/mm3 (0.9-3.2); Mean Corpuscular Hemoglobin 28.6 pg (26-34); Mean Corpuscular Volume 89.2 fl (80-100); Mean Platelet Volume 10.9 fl (7.4-10.4); Monocytes Absolute Auto 0.5 K/mm3 (0.1-0.6); Neutrophils Absolute Auto 8.3 K/mm3 (1.3-6.7); Neutrophils Percent Auto 88.2 % (45.5-73.1); Platelet Count Result 244 k/mm3 (150-375); Red Blood Count 4.83 M/mm3 (4.2-5.4); Red Cell Distribution Width 12.5 % (11.5-14.5); White Blood Count 9.5 K/mm3 (4.5-10.0)
[2023-11-05 19:14] LABS: INR 0.9; Prothrombin Time 12.8 Seconds (11.1-14.7)
[2023-11-05 19:15] LABS: Partial Thromboplastin Time 25.2 SECONDS (22.3-36.8)
[2023-11-05 19:18] LABS: Alanine Aminotransferase 25 U/L (6-35); Albumin Level 4.9 g/dL (3.5-5.1); Alkaline Phosphatase 79 U/L (38-126); Anion Gap 10 mmol/L (8-16); Aspartate Amino Transferase 44 U/L (14-36); Bilirubin,Total 1.3 mg/dL (0.2-1.3); Blood Urea Nitrogen 11 mg/dL (7-17); Calcium 10.8 mg/dL (8.4-10.2); Carbon Dioxide 23 mmol/L (22-30); Chloride 103 mmol/L (98-107); Estimated CRCL calculation 91 ml/min; Estimated Glomerular Filt Rate > 60; Glucose 114 mg/dL (65-110); Lipase 143 U/L (23-300); Potassium 3.6 mmol/L (3.4-5.0); Sodium 136 mmol/L (137-145)
[2023-11-05 19:28] LABS: Troponin I < 0.012 ng/mL (0.000-0.034)
--- NOTE | 2023-11-05 21:04 | ED.GENADULT ---
HPI - General Adult General Chief complaint: Chest Pain Stated complaint: Chest pain Time Seen by Provider: 11/05/23 20:47 Source: patient Limitations: no limitations History of Present Illness HPI narrative: Patient is a 43-year-old female presents to the emergency department complaining of chest pain and abdominal pain. Patient states she woke up with his pain at 4:30 a.m. this morning, notes it has overall been constant, in the epigastric region her abdomen in the middle of her chest, described as burning, stabbing, throbbing and also has a sharp pain that comes and goes, take Zofran without any relief in addition to Tums and Pepto-Bismol, denies any history of pain in the past but does admit to history of spasms from her gallbladder being taken out however that Is usually an her right upper quadrant and this does not feel the same. patient denies radiation of the pain. Patient admits to associated shortness of breath with pain deep inspiration. Patient is to associated nausea and vomiting with 1 episode of pink emesis after taking Pepto-Bismol and admits to current nausea. Patient denies anyone having some her symptoms around her. Patient denies any recent injuries, recent illness, urinary discomfort, diarrhea, melena, hematochezia, numbness, weakness, history of blood clots, unilateral lower extremity swelling, cough, fever, sore throat, nasal congestion. Patient admits to recently traveling to [place] return home on Thursday. Patient is to vaporizer use of nicotine. Patient denies history of smoking, hyperlipidemia, hypertension, diabetes mellitus, early heart disease in family members, history of heart disease. Patient's last menstrual period was on . Patient denies NSAID use or alcohol use. Related Data Home Medications Medication Instructions Recorded Confirmed alprazolam 0.5 mg tablet 0.5 mg PO QHS 05/15/22 Allergies Allergy/AdvReac Type Severity Reaction Status Date / Time No Known Allergies Allergy Verified 11/05/23 21:21 Review of Systems Review of Systems: A 10 system review of systems was completed on the patient and is negative except for what is stated in the HPI. Nursing and ancillary documentation was reviewed. [facility] Past Medical History Medical History Anxiety Depression Thyroid nodule Surgical History Surgical History History of cholecystectomy Family History Family History Grandparent Cerebrovascular accident Family history of malignant neoplasm Leukemia Mother Brain tumor Breast cancer Social History Social History Social History: caffeine-coffee Smoking status: Light tobacco smoker Tobacco type: e-cigarettes/vaping Alcohol intake: current Alcohol use details: socially Comments At time of signature, I have reviewed and agree with nursing past medical, surgical, social and family history unless otherwise noted. Please see the nursing chart for further information. There is no relevant family history pertinent to the presenting complaint. Exam Narrative: CONST: Mild acute distress. Well nourished. HENMT: Head is normocephalic and atraumatic. Tacky mucous membranes. No posterior oropharynx erythema. EYES: No conjunctival icterus, injection, or pallor. PERRL. NECK: No meningeal signs. No JVD. RESP: Able to speak in full sentences. Normal respiratory effort. CTAB. CARDIO: tachycardic rate. Regular rhythm. 2+ DP and radial pulses bilaterally. GI: Nondistended. Soft. mild tenderness to palpation in the epigastric region and bilateral upper quadrants. No rebound or guarding or rigidity. Negative Monterroso sign. No palpable masses or hernias. No McBurney's point tenderness to palpation. : No CVA tender
[2023-11-05] MEDS: SODIUM CHLORIDE 0.9% IV 1,000 ML 999 ML IV CONT ×2 (21:18→23:27)
[2023-11-05] MEDS: FAMOTIDINE 20 MG/2 ML VIAL IV PUSH (21:23)
[2023-11-05] MEDS: ONDANSETRON INJ 4 MG/2 ML VIAL IV PUSH (21:23)
[2023-11-05] MEDS: BELLADONNA ALK/PHENOB ELIX 10 ML, MAG HYDROX/ALUMINUM HYD/SIMETH 30 ML, LIDOCAINE HCL 2... PO (21:23)
[2023-11-05 21:37] LABS: Lactic Acid Reflex 1.2 mmol/L (0.7-2.0); Magnesium 1.6 mg/dL (1.6-2.3)
[2023-11-05 21:47] LABS: SPREG INTERNAL CONTROL Positive; Serum Qual hCG Negative; Troponin I < 0.012 ng/mL (0.000-0.034)
[2023-11-05 21:54] LABS: Influenza A QL RT-PCR Positive (Negative); Influenza B QL RT-PCR Negative (Negative); RSV RNA, RT-PCR Negative (Negative); SARS-CoV-2 RNA PCR Negative (Negative)
[2023-11-05] MEDS: MORPHINE SULFATE (*CRX) 4 MG/ML INJ 2 MG IV PUSH (22:15)
[2023-11-05 22:36] LABS: Thyroid Stimulating Hormone Reflex 0.317 uIU/mL (0.465-4.68)
[2023-11-05] MEDS: KETOROLAC 15 MG/ML VIAL (*BKC) IV PUSH (23:26)
[2023-11-05 23:58] LABS: Free T4 Free Thyroxine Reflex 1.27 ng/dL (0.78-2.19)
[2023-11-06 00:30] VITALS: PULSE 100
== END 2023-11-06 00:30 | disposition home or self-care (01) ==
PROVIDERS: Emergency Medicine; Emergency Provider Student in an Organized Health Care Education/Training Program; PCP Internal Medicine
DX: J10.1 Influenza due to other identified influenza virus with other respiratory manifestations (principal); R07.9 Chest pain, unspecified; R10.13 Epigastric pain; R06.00 Dyspnea, unspecified; F41.9 Anxiety disorder, unspecified; F32.A Depression, unspecified; F17.290 Nicotine dependence, other tobacco product, uncomplicated; Z90.49 Acquired absence of other specified parts of digestive tract; R94.31 Abnormal electrocardiogram [ECG] [EKG]; R00.0 Tachycardia, unspecified
CPT/HCPCS: 36415; 71046; 71275; 74177; 80053; 83605; 83690; 83735; 84439; 84443; 84480; 84484; 84703; 85025; 85380; 85610; 85730; 87637; 93005; 96361; 96374; 96375; 99284; A9270; J1885; J2270; J2405; J7030; Q9967

== ENCOUNTER 2024-02-16 18:04 | Emergency (ER) | payer OTHER, SELFPAY ==
[2024-02-16 18:23] VITALS: BP 147/94; PULSE 78; RESP 18; TEMP 37.2; O2SAT 98
[2024-02-16 21:26] VITALS: BP 157/84; PULSE 72; RESP 18; O2SAT 98
[2024-02-16 21:47] VITALS: BP 123/80; PULSE 73; RESP 18; O2SAT 100
[2024-02-17 00:01] LABS: Appearance Urine Clear (Clear); Bilirubin Urine Negative (Negative); Blood Urine Negative (Negative); Color Urine Yellow (Yellow); Glucose Urine UA Negative (Negative); Ketones Urine Negative (Negative); Leukocyte Esterase Ur Negative LEU/UL (Negative); Nitrate Urine Negative (Negative); Protein Urine Negative (Negative); Specific Grav Ur 1.022 (1.001-1.035)
[2024-02-17 00:10] LABS: Add Urine Microscopic? NO
[2024-02-17 00:11] VITALS: BP 120/78; PULSE 72; RESP 18; O2SAT 99
--- NOTE | 2024-02-17 00:13 | PC.NURSE ---
Contacted poison control. Zuleika, pharmacist, stated if pts symptoms are not worsening in the 6 hours that she has been here, pt will be able to go home because internal chemical foley would have had more serious symptoms.
[2024-02-17 00:16] LABS: Amphetamine Screen Urine Negative (Negative); Barbiturate Screen Urine Negative (Negative); Benzodiazepines Screen Urine Negative (Negative); Cannabinoid Screen Urine Negative (Negative); Cocaine Screen Urine Negative (Negative); Methadone Screen Urine Negative (Negative); Opiate Screen Urine Negative (Negative); Phencyclidine Screen Urine Negative (Negative)
[2024-02-17 00:54] VITALS: RESP 16
[2024-02-17] MEDS: IPRATROPIUM 0.5 MG/ALBUTEROL SULFATE 2.5 MG AMPUL.NEB 3 ML INHALATION (00:54)
[2024-02-17 01:00] VITALS: RESP 16
[2024-02-17] MEDS: BELLADONNA ALK/PHENOB ELIX 10 ML, MAG HYDROX/ALUMINUM HYD/SIMETH 30 ML, LIDOCAINE HCL 2... PO (01:13)
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
[2024-02-17 03:20] VITALS: BP 106/69; PULSE 69; RESP 17; O2SAT 95
== END 2024-02-17 03:20 | disposition home or self-care (01) ==
PROVIDERS: Emergency Provider Emergency Medicine; PCP Internal Medicine
DX: K20.80 Other esophagitis without bleeding (principal); F41.9 Anxiety disorder, unspecified; F32.A Depression, unspecified; F17.290 Nicotine dependence, other tobacco product, uncomplicated; Z90.49 Acquired absence of other specified parts of digestive tract
CPT/HCPCS: 80307; 81003; 81025; 94640; 99283; A9270

== ENCOUNTER 2024-03-23 06:40 | Day surgery (SDC) | payer OTHER, SELFPAY ==
[2024-03-17 10:07] VITALS: BMI 28.8
[2024-03-18 09:13] VITALS: BMI 27.3
[2024-03-23 07:39] VITALS: BP 122/67; PULSE 88; RESP 18; TEMP 36.3; O2SAT 98; BMI 27.1
--- NOTE | 2024-03-23 07:51 | WPDANESEPPF ---
Anes - Initial Pre Proc Eval Procedure: Operation Date: 03/23/24 09:00 Proposed Procedures p Esophagogastroduodenoscopy - Raul Newby MD s Screening Colonoscopy - Raul Newby MD Date/Time: 03/23/24 07:51 Surgeon: Raul Newby MD Pre Op Diagnosis: Dysphagia, Neoplasm Screening Patient Data Age: 43 Gender: F Height: 1.65 m Weight: 74 kg Last Vital Signs Temp 36.3 C L 03/23/24 07:39 Pulse 88 03/23/24 07:39 Resp 18 03/23/24 07:39 BP 122/67 03/23/24 07:39 Pulse Ox 98 03/23/24 07:39 O2 Del Method Room Air 03/23/24 07:39 Allergies Allergy/AdvReac Type Severity Reaction Status Date / Time No Known Allergies Allergy Verified 03/23/24 07:36 Home Medications Medication Instructions Recorded Confirmed Type alprazolam 0.5 mg tablet 0.5 mg PO QHS 05/15/22 03/23/24 History aluminum-mag hydroxide-simethicone 10 ml PO QID PRN dyspepsia #3,000 11/05/23 03/23/24 Rx 200 mg-200 mg-20 mg/5 mL oral susp mL (Maalox Advanced) lamotrigine 50 mg tablet,extended 50 mg PO .HS 02/19/24 03/23/24 History release 24 hr omeprazole 40 mg capsule,delayed 40 mg PO BID #60 caps 03/16/24 03/23/24 Rx release sucralfate 100 mg/mL oral 1 g (10 mL) PO ACHS #1,000 mL 03/16/24 03/23/24 Rx suspension (Carafate) Patient hx anesthesia problems: none Family hx anesthesia problems: none Results Review: All pre-operative results and documents have been reviewed as part of the pre-operative evaluation. [facility] Past Medical History Medical History Anxiety Depression Thyroid nodule Surgical History Surgical History History of cholecystectomy Family History Family History Grandparent Cerebrovascular accident Family history of malignant neoplasm Leukemia Mother Brain tumor Breast cancer Social History Social History Social History: caffeine-coffee Smoking status: Current some day smoker Tobacco type: e-cigarettes/vaping Alcohol intake: current Alcohol use details: socially Substance use: unknown Substance use type: does not use Do You Feel Safe in your Home?: Yes Lack of Transportation: No Lack of Food: Never True Current Housing: I Have Housing Concerned About Future Housing: No Difficulty Paying Gas/Electric Bills: No Difficulty Paying for Meds: No Currently Unemployed: No Education: Bachelor's Degree Difficulty w/ Childcare or Family Care: No Living arrangements: with family Gender identity (if verbalized by the patient): Female Sexual Orientation (if Verbalized by the Patient): Straight or Heterosexual Spiritual care concerns: No Anes - Eval Final PreProcedure Day of Procedure 03/23/24 07:51 Patient weight: overweight Heart: regular rate and rhythm Lungs: clear to auscultation Airway: Mallampati scale class II Neurological: alert and oriented Last oral intake: >/= 8 hours ASA classification: II Emergent: no Anesthetic plan: proceed Anesthesia type and monitoring: general GIVS and standard monitoring Results Review: All pre-operative results and documents have been reviewed as part of the pre-operative evaluation. Informed Consent: The patient's anesthetic plan and its attendant risks and benefits were discussed with the patient/family/POA. Questions were solicited and answers provided to the satisfaction of the patient/family/POA.
[2024-03-23] MEDS: LACTATED RINGERS 1,000 ML 150 ML IV CONT (07:52)
--- NOTE | 2024-03-23 08:17 | WPDHPUPDATE1 ---
History and Physical Update Update Date/Time: 03/23/24 08:17 History and Physical has been reviewed, including an updated exam of the patient. There are NO changes in the patient's condition. Risks, benefits, and alternatives have been discussed and questions answered. Patient agrees to proceed with procedure.
[2024-03-23 09:21] VITALS: BP 111/70; PULSE 71; RESP 16; O2SAT 100
[2024-03-23 09:31] VITALS: BP 126/70; PULSE 69; RESP 16; O2SAT 100
[2024-03-23 09:41] VITALS: BP 135/88; PULSE 70; RESP 16; O2SAT 100
--- NOTE | 2024-03-23 09:43 | WPDANESPN ---
Anes - Prog Note Post-Op Date/Time: 03/23/24 09:43 Cardiovascular status: normal Respiratory status: normal Airway patency: baseline Mental status: baseline Post-Op hydration status: normal Vital Signs: Last Vital Signs Temp 36.3 C L 03/23/24 07:39 Pulse 69 03/23/24 09:31 Resp 16 03/23/24 09:31 BP 126/70 03/23/24 09:31 Pulse Ox 100 03/23/24 09:31 O2 Del Method Room Air 03/23/24 09:31 Pain Score (VAS): 0/10 I/O: Intake & Output 03/22/24 03/23/24 03/23/24 23:59 07:59 15:59 Intake Total 950 Balance 950 Patient Feedback: Patient satisfied with anesthetic care.
== END 2024-03-23 10:00 | disposition home or self-care (01) ==
PROVIDERS: PCP Nurse Practitioner; Visit Provider Internal Medicine Gastroenterology
PROC: 0DJ08ZZ Inspection of Upper Intestinal Tract, Via Natural or Artificial Opening Endoscopic (ICD-10-PCS; CPT 43235; principal; 2024-03-23 09:00)
PROC: 0DJD8ZZ Inspection of Lower Intestinal Tract, Via Natural or Artificial Opening Endoscopic (ICD-10-PCS; CPT 45378; 2024-03-23 09:00)
DX: Z12.11 Encounter for screening for malignant neoplasm of colon (principal); R13.10 Dysphagia, unspecified
CPT/HCPCS: 45378; 43235

== ENCOUNTER 2025-02-27 13:00 | Outpatient (RCR) | payer OTHER, SELFPAY ==
--- NOTE | 2024-12-14 09:54 | OPREHPOC ---
Outpatient Therapy Plan of Care This is a Multidisciplinary Plan of Care that may contain components documented by all disciplines (PT, OT, and ST.) PT Problem 1 PT Problem #1 Knowledge Deficit PT Goal 1 Goal / Goal Update 1. Patient will perform independent HEP Target Visit 3 PT Problem 2 PT Problem #2 Pain PT Goal 1 Goal / Goal Update 1. Patient will report pelvic pain 4/10 highest with typical activities 2. Pelvic pain on exam 2/10 highest Target Visit 6 PT Problem 3 PT Problem #3 Impaired Functional ADLs PT Goal 1 Goal / Goal Update 1. Patient will report no urinary incontinence for at least 1 month 2. Patient will not report functional limitations due to pain Target Visit 6
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
--- NOTE | 2025-01-30 13:11 | OPREHPOC ---
Outpatient Therapy Plan of Care This is a Multidisciplinary Plan of Care that may contain components documented by all disciplines (PT, OT, and ST.) PT Problem 1 PT Problem #1 Knowledge Deficit PT Goal 1 Goal / Goal Update 1. Patient will perform independent HEP Target Visit 3 Progress Met PT Problem 2 PT Problem #2 Pain PT Goal 1 Goal / Goal Update 1. Patient will report pelvic pain 4/10 highest with typical activities 2. Pelvic pain on exam 2/10 highest update 01/30/25 1. progressing, 01/28 2. no change Target Visit 11 Progress Partially Met PT Problem 3 PT Problem #3 Impaired Functional ADLs PT Goal 1 Goal / Goal Update 1. Patient will report no urinary incontinence for at least 1 month 2. Patient will not report functional limitations due to pain update 01/30/25 1. none in last week 2. improved Target Visit 11 Progress Partially Met
--- NOTE | 2025-01-30 13:11 | PTOPPROG ---
Assessment and note entered by Amberly Salinas DPT Evaluation Information Assessment Status Progress ICD-10 Condition Codes (PT) Pelvic and perineal pain R10.2,Stress incontinence N39.3 Subjective Information Pt reports she feels better with therapy. States her daily level of pain has improved and is more comfortable. Highest pain recently 5/10 and lowest 1-2/10. No stress incontinence in the last week. Feels that she is able to do more of her normal daily activities in general since her pain has decreased. Assessment PT Clinical Summary The patient has made good progress and reports overall decreased pain and improvements with ability to perform normal tasks. She demonstrates improved abdominal strength and diastasis closure, as well as improved pelvic floor muscle tone. She continues to have pain at all times and will benefit from further therapy to continue reducing pain and to restore full function. Plan of Care Interventions Electrical Stimulation,Hot Pack/Cold Pack,Manual Therapy,Neuro Re-education,Patient/Caregiver Education,Therapeutic Activities,Therapeutic Exercise PT Services Indicated Yes Treatment Frequency and 1 time a week for 5 visits Duration These treatments will address the objective and functional deficits as defined above. The patient will be advanced safely and appropriately in order for the patient to progress towards his/her prior level of function. Additional exercises will be introduced and as well as a comprehensive home exercise program upon discharge, if needed, ?to ensure carryover of functional gains achieved in the clinic. This treatment plan has been reviewed and agreement upon by the patient.
--- NOTE | 2025-02-16 11:35 | PCPTNOTE ---
Patient did not show up for appointment 02/16/25. When called, she stated she forgot to call and cancel due to personal conflict.
--- NOTE | 2025-03-06 09:51 | PCPTNOTE ---
Patient called to cancel appointment 03/06/25, unknown reason.
--- NOTE | 2025-03-23 10:48 | PCPTNOTE ---
Patient did not show up for appointment 03/23/25. Called patient to reschedule but voicemail is full.
--- NOTE | 2025-04-20 09:26 | PTOPDC ---
Assessment and note entered by Amberly Salinas DPT Evaluation Information Assessment Status Discharge - Pt Not Present ICD-10 Condition Codes (PT) Pelvic and perineal pain R10.2,Stress incontinence N39.3 Subjective Information - Assessment PT Clinical Summary Patient has not attended therapy since 02/27/25. Her case will be discharged this date. Plan of Care PT Services Indicated No
== END 2025-03-14 23:59 | disposition home or self-care (01) ==
LOC: ANHGOSHPT 13:00
PROVIDERS: PCP Nurse Practitioner; Visit Provider Nurse Practitioner
DX: N39.3 Stress incontinence (female) (male) (principal)
CPT/HCPCS: 97110; 97112; 97140; 97162; 97530